=== PATIENT | male | born 1945 | race Caucasian/White ===

== ENCOUNTER → 2017-05-18 | Outpatient (CLI) | payer MEDICARE | LOC: GMAB 14:54 | PROVIDERS: ATTEND Family Medicine | DX: R56.9 Unspecified convulsions (principal); Z12.5 Encounter for screening for malignant neoplasm of prostate; Z79.899 Other long term (current) drug therapy | CPT/HCPCS: 80185; 84443; G0103 ==

== ENCOUNTER → 2017-05-20 | Outpatient (CLI) | payer MEDICARE ==
--- NOTE | 2017-05-22 06:10 | CT ---
Procedure: CT CHEST WITH IV CONTRAST Exam date: 05/20/2017 12:00 AM CDT Ordering Provider: SUE CASTELLANO Clinical Indication: CHRONIC COUGH Comparison: None Technique: Using a multislice scanner, sequential axial imaging was obtained in the thorax from the level of the thoracic inlet through the lung bases. The exam was obtained with the administration of IV contrast. 2D sagittal and coronal reconstructed images were obtained. This exam was performed according to our departmental dose optimization program which includes use of automated exposure control, adjustment of the mA and/or kV according to patient size and/or use of iterative reconstruction technique. FINDINGS: 9 mm well-circumscribed nodule within the left upper lobe. Internal Hounsfield units measure a negative value of -77. This is favored to represent a small hamartoma. Otherwise, there are no concerning pulmonary masses or nodules. There is no alveolar or interstitial infiltrate. There are no pleural effusions. Cardiac size is normal. There is no pericardial effusion. Aorta and pulmonary arteries are grossly unremarkable. Bullous timing was not sent for pulmonary angiography and segmental or subsegmental pulmonary emboli cannot be excluded. No dissection or aneurysm seen. There is no supraclavicular or axillary lymphadenopathy. There is no mediastinal, hilar, or subcarinal lymphadenopathy. There are no skeletal abnormalities. Heterogeneous right thyroid nodule measuring 1.8 x 1.4 cm. Follow-up ultrasound of the thyroid is recommended. IMPRESSION 1. Nonacute contrast enhanced CT scan of the chest. 2. Subcentimeter left upper lobe pulmonary hamartoma. 3. Right thyroid lobe nodule. Recommend dedicated ultrasound of the thyroid gland.. Electronically signed by: Umberto Sotelo MD 05/22/2017 6:09 AM CDT
== END | disposition home or self-care (01) ==
LOC: CT 09:28
PROVIDERS: ATTEND Family Medicine
DX: R05 Cough (principal)

== ENCOUNTER → 2018-10-04 | Outpatient (CLI) | payer MEDICARE | LOC: GMAE 14:20 | PROVIDERS: ATTEND Family Medicine | DX: R56.9 Unspecified convulsions (principal); E83.51 Hypocalcemia; R53.83 Other fatigue ==

== ENCOUNTER → 2019-11-26 | Outpatient (CLI) | payer MEDICARE | CPT/HCPCS: 84443; G0103 ==

== ENCOUNTER → 2020-04-03 | Outpatient (CLI) | payer MEDICARE ==
--- NOTE | 2020-04-03 21:08 | US ---
EXAM DESCRIPTION: Extremity,Lower Jose Daniel Arteries: Ultrasound. CLINICAL HISTORY: PAIN IN RIGHT LEG COMPARISON: None. TECHNIQUE: Doppler evaluation of the bilateral lower extremity arterial flow waveforms and velocities. FINDINGS: Arterial waveforms in the right lower extremity are all multiphasic.. Arterial waveforms in the left lower extremity are all multiphasic.. Comments: Negative findings. IMPRESSION: Doppler ultrasound of the bilateral lower extremity arterial system shows no evidence of significant atherosclerotic occlusive disease.. Electronically signed by: Norm Iniguez MD 04/03/2020 9:07 PM CDT
== END ==
LOC: US 09:42
PROVIDERS: ATTEND Family Medicine
DX: M79.605 Pain in left leg (principal); M79.604 Pain in right leg

== ENCOUNTER → 2020-04-09 | Outpatient (CLI) | payer MEDICARE | LOC: ECHO 09:16 | PROVIDERS: ATTEND Family Medicine | DX: R06.00 Dyspnea, unspecified (principal) ==

== ENCOUNTER 2020-06-17 09:18 | Inpatient (IN) | payer MEDICARE ==
--- NOTE | 2020-06-17 10:07 | ED.PDOC ---
History of Present Illness - General Chief Complaint: Respiratory Problem Stated Complaint: trouble breathing Time Seen by Provider: 06/17/20 09:47 Source: patient Exam Limitations: no limitations - History of Present Illness Initial Comments: INTERMITTENT DYSPNEA X 1 MONTH[address] [facility] [address] FOR COVID TEST, THEY NOTICED HIS SATS IN 80'S ON RA, THUS SENT TO ER FOR EVALUATION. PT STATES FOR PAST MONTH, HE "CAN'T BREATHE." COMES AND GOES. NO COUGH. NO CP. DENIES ANY KNOWN COVID CONTACTS. 02 SATS 86% ON RA, 93% ON 3L NC. NO LABORED BREATHING BUT POS BL EXPIRATORY WHEEZE ON P.E. DENIES ANY H/O COPD OR ASTHMA BUT SMOKES. Timing/Duration: intermittent Severity: moderate Activities at Onset: none Possible Cause: other - POSSIBLY COVID VS TOBACCO USE (COPD EXACERBATION). Worsening Factors: nothing Associated Symptoms: denies symptoms Respiratory Risk Factors: no cause identified Allergies/Adverse Reactions: Allergies NO KNOWN ALLERGY Allergy (Verified 07/03/15 11:24) Home Medications: Ambulatory Orders Acetaminophen [Gnp Arthritis Pain Relief] 2 each PO DAILY 06/17/20 Calcium Carbonate-Vitamin D W/ [Caltrate 600+D Plus [employer]] 1 tab PO DAILY 06/17/20 Esomeprazole Magnesium [Nexium 24Hr] 20 mg PO DAILY 06/17/20 Furosemide [Lasix] 40 mg PO DAILY 06/17/20 Meloxicam [Mobic] 15 mg PO DAILY 06/17/20 Phenytoin Sodium Cap Extended [Dilantin Cap] 300 mg PO BEDTIME 06/17/20 Potassium Chloride [K-Tab] 10 meq PO DAILY 06/17/20 Probiotic Product [Probiotic] 1 tab PO DAILY 06/17/20 Review of Systems - Review of Systems Constitutional: Denies: chills, fever, malaise EENTM: Denies: ear pain, nose congestion, throat pain Respiratory: States: short of breath. Denies: cough, wheezing Cardiology: Denies: chest pain, palpitations Gastrointestinal/Abdominal: Denies: abdominal pain, nausea Genitourinary: Denies: dysuria, frequency Musculoskeletal: Denies: back pain, joint pain, muscle pain, neck pain Skin: Denies: lesions, rash Neurological: Denies: headache, paresthesia, weakness Endocrine: Denies: intolerance to cold, intolerance to heat Hematologic/Lymphatic: Denies: easy bleeding, easy bruising All other Systems: Reviewed and Negative Past Medical History (General) - Patient Medical History Hx Seizures: Yes Hx Stroke: No Hx Congestive Heart Failure: No Hx Diabetes: No Hx Gastroesophageal Reflux: Yes Surgical History: no surgical history - Vaccination History Hx Tetanus, Diphtheria Vaccination: No Hx Influenza Vaccination: No Hx Pneumococcal Vaccination: Yes - Social History Hx Tobacco Use: Yes Family Medical History - Family History Father Family History: Unknown Physical Exam - Physical Exam General Appearance: Alert, No apparent distress Eyes, Ears, Nose, Throat Exam: normal ENT inspection, TMs normal, pharynx normal Neck: non-tender, supple Respiratory: no respiratory distress, no accessory muscle use, wheezing - BL EXPIRATORY MUSICAL WHEEZE. Cardiovascular/Chest: regular rate, rhythm, no murmur Peripheral Pulses: radial,right: 2+, radial,left: 2+ Gastrointestinal/Abdominal: normal bowel sounds, non tender, soft Rectal Exam: deferred Extremity: no pedal edema, no calf tenderness Neurologic: alert, normal mood/affect, oriented x 3 Skin Exam: normal color, warm/dry Lymphatic: no adenopathy Progress - Progress Progress: 06/17/20 10:[address] [facility] OFFICE CALLED AND INFORMED US HIS COVID SWAB WAS POSITIVE. 06/17/20 11:38 COVID POS. CRP ELEVATED. AST/ALT MIDLY ELEVATED. EKG LEFT AXIS DEVIATION AND INVERTED T-WAVES, BUT NO ST ELEVATION/DEPRESSION. D-DIMER MILDLY ELEVATED AT 529, NOT TO THE POINT OF P.E. CONCERNS THUS CT IS NOT INDICATED AT THIS TIME. HIS RESPIRATORY STATUS IS STABLE. NEG OR UNREMARKABLE DIAGNOSTICS: CREATINE KINASE, LACTATE DEHYDROGENASE, LACTIC ACID, UA, CARDIAC ENZ, CBC, COAGS, CXR NEG ACUTELY, BCX PENDING. PER UP-TO-DATE, HE IS REQUIRING 02 SUPPLEMENTATION, I GAVE DOSE OF DEXAMETHASONE, DUONEBS [place]. PT IS HIGH RISK WITH: AGE IN 70'S, OBESE, SMOES, SATS BELOW 90, THUS ADMITTING. THANK YOU, [facility], FOR ACCEPTING ADMISSION CARE OF OUR PATIENT. - EKG/XRAY/CT EKG: no ST T wave changes Departure - Departure Clinical Impression: Lab test positive for detection of COVID-19 virus, Hypoxia, Wheeze, Tobacco use, Requires supplemental oxygen, CRP elevated, LFT elevation, D-dimer, elevated Dyspnea Qualifiers: Dyspnea type: shortness of breath Qualified Code(s): R06.02 - Shortness of breath; R06.00 - Dyspnea, unspecified; R06.01 - Orthopnea Disposition: Admit Patient Condition: Fair Departure Forms: ED Discharge - Pt. Copy, Patient Portal Self Enrollment Referrals: MONSERRAT ALVARADO MD [Primary Care Provider] - 1-2 Weeks Home Medications: Ambulatory Orders Acetaminophen [Gnp Arthritis Pain Relief] 2 each PO DAILY 06/17/20 Calcium Carbonate-Vitamin D W/ [Caltrate 600+D Plus [place]] 1 tab PO DAILY 06/17/20 Esomeprazole Magnesium [Nexium 24Hr] 20 mg PO DAILY 06/17/20 Furosemide [Lasix] 40 mg PO DAILY 06/17/20 Meloxicam [Mobic] 15 mg PO DAILY 06/17/20 Phenytoin Sodium Cap Extended [Dilantin Cap] 300 mg PO BEDTIME 06/17/20 Potassium Chloride [K-Tab] 10 meq PO DAILY 06/17/20 Probiotic Product [Probiotic] 1 tab PO DAILY 06/17/20 Decision To Admit - Decistion To Admit Decision to Admit Reason: Admit from ER Decision to Admit Date: 06/17/20 Decision to Admit Time: 11:47
[2020-06-17] MEDS ORDERED: IPRATROPIUM/ALBUTEROL 3 ML VIAL NEB ONE (10:08)
[2020-06-17] MEDS ORDERED: DEXAMETHASONE INJ 4 MG/ML VIAL IV ONE (10:25)
--- NOTE | 2020-06-17 11:05 | RAD ---
Study: Single Frontal Radiograph of the Chest. Indication:hypoxia Comparison: CT May 20, 2017. Findings: Mild cardiomegaly. Mild prominence of the right paratracheal stripe, likely reflecting underlying vascularity but nonspecific. Short-term follow-up versus CT recommended. Previously noted left upper lobe 10 mm hamartoma redemonstrated. Mild basilar atelectasis. No pleural effusion or pneumothorax. Electronically signed by: Juan Pablo Elizabeth MD 06/17/2020 11:02 AM CDT
--- NOTE | 2020-06-17 12:03 | HP ---
SUPERVISING PHYSICIAN: Tre Terrazas MD CHIEF COMPLAINT: Difficulty breathing. HISTORY OF PRESENT ILLNESS: This is a 89-year-old male patient who came to the Emergency Room with a one-month history of intermittent dyspnea. Apparently he tested positive about a month ago with COVID-19. He was seen at the clinic and noted to have O2 saturations in the low 80s. Therefore, he was sent to the ER. He was seen in the ER and was about 86% on room air. He was placed on nasal cannula and his oxygen saturation improved to 93% on 3 liters. Chest x-ray was consistent with COVID pneumonitis. Other labs done show white count 3.7, hemoglobin 14.7, platelet count 132. Elevated D-dimer at 529. Chemistry shows mildly elevated liver function tests with AST 49, ALT 86. BUN slightly elevated at 20. Cardiac enzymes negative. CRP 3.7, lactic acid 1.6. Due to the hypoxemia, he was referred for admission. At time of examination, the patient is alert. No significant complaints of shortness of breath. No complaints of pain at this time, only being hungry. PAST MEDICAL HISTORY: 1. Gastroesophageal reflux disease. 2. Seizure disorder. 3. Nicotine dependency. PAST SURGICAL HISTORY: None. MEDICATIONS: Please see Qwilr list once verified in the computer. ALLERGIES: NO KNOWN DRUG ALLERGIES. FAMILY HISTORY: Both parents from unknown causes of . SOCIAL HISTORY: The patient smokes. No alcohol, no illicit drugs. REVIEW OF SYSTEMS: CONSTITUTIONAL: No fever or chills. No recent weight loss or weight gain. HEENT: No headaches, vision changes, ear pain, nasal congestion or throat pain. RESPIRATORY: Positive for shortness of breath and cough. No hemoptysis or pleuritic chest pain. CARDIOVASCULAR: No chest pain, palpitations or peripheral edema. GASTROINTESTINAL: No nausea, vomiting, diarrhea, constipation or abdominal pain. GENITOURINARY: No dysuria, frequency or flank pain. ENDOCRINE: No polydipsia, polyuria or polyphagia. No heat or cold intolerance. MUSCULOSKELETAL: No joint pain, joint swelling or muscle cramps. NEUROLOGIC: He has seizure disorder, but no syncope, paresthesias. HEMATOLOGIC: No easy bruising and no transfusion reaction. PHYSICAL EXAMINATION: VITAL SIGNS: Blood pressure 120/85, heart rate 70, respiratory rate 20, temperature 96.7, oxygen saturation 96% on 3 liters via nasal cannula. GENERAL: Mr. Meza is a 75-year-old male patient in no active distress. NEUROLOGIC: The patient is alert. LUNGS: Clear to auscultation bilaterally currently, a little bit diminished in the bases otherwise. CARDIOVASCULAR: Regular rate and rhythm. Normal S1, S2. ABDOMEN: Soft. Positive bowel sounds. GENITOURINARY: Deferred. EXTREMITIES: Lower extremities with no edema. Pulses 2+. Capillary refill is less than 2 seconds. LABORATORY: Labs and films are as discussed in history of present illness. IMPRESSION: 1. Acute hypoxemic respiratory failure. 2. COVID pneumonitis. 3. Gastroesophageal reflux disease. 4. History of seizure disorder. 5. Mild transaminitis. PLAN: The patient will be admitted to the Medical/Surgical Unit on supplemental oxygen. He is empirically placed on azithromycin, Rocephin and dexamethasone. I am placing him on 1 mg per kg of Lovenox as well. We will monitor the patient's respiratory status. I have discussed with him that if it starts to worsen, he will need to be transferred. For now, we will monitor and ensure that he maintains adequate oxygenation. I will resume home medications once they are verified in the computer as well. #[id number] [facility]
[2020-06-17 12:06] VITALS: BP 120/85
[2020-06-17 12:34] VITALS: TEMP 96.7; O2SAT 96
[2020-06-17] MEDS ORDERED: SODIUM CHLORIDE 0.9% (FLUSH) 10 ML SYG IV PRN (12:35)
[2020-06-17] MEDS ORDERED: IPRATROPIUM/ALBUTEROL 3 ML VIAL INH PRN (12:35)
[2020-06-17] MEDS ORDERED: IV SET AND CAP CHANGE INJ INJ SCH (13:00)
[2020-06-17] MEDS ORDERED: ENOXAPARIN SODIUM 100 MG/ML SYG SUBCU SCH (13:00)
[2020-06-17] MEDS ORDERED: cefTRIAXone SODIUM 1 GM in SODIUM CHL 0.9% 50ML MIN-BAG+ 50 ML IVPB SCH (13:00)
[2020-06-17] MEDS ORDERED: AZITHROMYCIN IV 500 MG in SODIUM CHLORIDE 0.9% 250ML 250 ML IVPB SCH (14:00)
[2020-06-17] MEDS ORDERED: IPRATROPIUM/ALBUTEROL 3 ML VIAL INH SCH (16:00)
[2020-06-17] MEDS ORDERED: ALBUTEROL INHALER 64 PUFF/8GM INH SCH (16:00)
[2020-06-17] MEDS ORDERED: PHENYTOIN SODIUM CAP EXTENDED 100 MG CAP PO SCH (21:00)
[2020-06-18] MEDS ORDERED: PANTOPRAZOLE SODIUM TAB 40 MG PO SCH (06:30)
[2020-06-18] MEDS ORDERED: FUROSEMIDE 40 MG TAB PO SCH (09:00)
[2020-06-18] MEDS ORDERED: DEXAMETHASONE INJ 10 MG/ML VIAL IV SCH (09:00)
[2020-06-18] MEDS ORDERED: CALCIUM CARBONATE-VITAMIN D 500 MG TAB PO SCH (09:00)
[2020-06-18] MEDS ORDERED: POTASSIUM CHLORIDE 10 MEQ TAB PO SCH (09:00)
[2020-06-18] MEDS ORDERED: MELOXICAM 7.5 MG TAB PO SCH (09:00)
[2020-06-18] MEDS ORDERED: ACETAMINOPHEN PO SCH (09:00)
== END 2020-06-17 13:30 | disposition left against medical advice (07) | DRG 177 ==
LOC: ER 09:18 → OBSVTOIN 12:00 → MS 12:00
PROVIDERS: ADMIT Nurse Practitioner; ATTEND Nurse Practitioner
DX: U07.1 COVID-19 (principal); J12.89 Other viral pneumonia; J96.01 Acute respiratory failure with hypoxia; R79.89 Other specified abnormal findings of blood chemistry; K21.9 Gastro-esophageal reflux disease without esophagitis; G40.909 Epilepsy, unspecified, not intractable, without status epilepticus; F17.210 Nicotine dependence, cigarettes, uncomplicated; R74.01 Elevation of levels of liver transaminase levels; Z79.1 Long term (current) use of non-steroidal anti-inflammatories (NSAID); Z79.899 Other long term (current) drug therapy

== ENCOUNTER 2020-07-02 11:58 | Emergency (ER) | payer MEDICARE ==
[2020-07-02 12:13] VITALS: TEMP 97.7
--- NOTE | 2020-07-02 12:18 | ED.PDOC ---
History of Present Illness - General Time Seen by Provider: 07/02/20 11:59 Source: patient, RN notes reviewed, Vital Signs reviewed, old records Additional Information: Hx of brain injury, seizures, memory impairment. daughter POA. - History of Present Illness Initial Comments: 75 yo M comes in with the c/c of something feels stuck in his lower esophagus. States he ate about 1 inch bite of hot dog around 8 PM yesterday, and has since not been able to keep any food or drink down. Can swallow secretions, no coughing or aspiration. no shortness of breath. Has not happened before. Of note patient was recently admitted to the hospital with covid, but left AMA. currently not having any COVID symptoms. Allergies/Adverse Reactions: Allergies NO KNOWN ALLERGY Allergy (Verified 07/03/15 11:24) Home Medications: Ambulatory Orders Acetaminophen [Gnp Arthritis Pain Relief] 2 each PO DAILY 06/17/20 Calcium Carbonate-Vitamin D W/ [Caltrate 600+D Plus [place]] 1 tab PO DAILY 06/17/20 Esomeprazole Magnesium [Nexium 24Hr] 20 mg PO DAILY 06/17/20 Furosemide [Lasix] 40 mg PO DAILY 06/17/20 Meloxicam [Mobic] 15 mg PO DAILY 06/17/20 Phenytoin Sodium Cap Extended [Dilantin Cap] 300 mg PO BEDTIME 06/17/20 Potassium Chloride [K-Tab] 10 meq PO DAILY 06/17/20 Probiotic Product [Probiotic] 1 tab PO DAILY 06/17/20 Review of Systems - Review of Systems Constitutional: Denies: chills, fever EENTM: Denies: blurred vision Respiratory: Denies: cough, short of breath Cardiology: Denies: chest pain, palpitations Gastrointestinal/Abdominal: States: abdominal pain, nausea, vomiting. Denies: diarrhea Genitourinary: Denies: frequency Musculoskeletal: Denies: back pain, muscle pain Skin: Denies: rash Neurological: Denies: headache, numbness Endocrine: Denies: unexplained weight gain, unexplained weight loss Hematologic/Lymphatic: Denies: easy bleeding, easy bruising Past Medical History (General) - Patient Medical History Hx Seizures: Yes Hx Stroke: No Hx Congestive Heart Failure: No Hx Diabetes: No Hx Gastroesophageal Reflux: Yes - Vaccination History Hx Tetanus, Diphtheria Vaccination: No Hx Influenza Vaccination: No Hx Pneumococcal Vaccination: Yes - Social History Hx Tobacco Use: Yes Family Medical History - Family History Father Family History: Unknown Physical Exam - Physical Exam General Appearance: Alert, Comfortable, No apparent distress, Well Developed, Well Groomed, Well Hydrated, Well Nourished Ears, Nose, Throat: hearing grossly normal, normal ENT inspection Neck: non-tender, full range of motion, supple, normal inspection Respiratory: chest non-tender, lungs clear, normal breath sounds, no respiratory distress, no accessory muscle use Cardiovascular/Chest: normal peripheral pulses, regular rate, rhythm, no edema, no gallop, no JVD, no murmur Peripheral Pulses: radial,right: 2+, radial,left: 2+ Gastrointestinal/Abdominal: normal bowel sounds, non tender, soft, no organomegaly, no pulsatile mass Rectal Exam: deferred Back Exam: normal inspection, no CVA tenderness Extremity: normal range of motion, non-tender, no calf tenderness Neurologic: no motor/sensory deficits, alert, normal mood/affect Skin Exam: normal color, warm/dry Progress - Progress Progress: 07/02/20 12:33 attempted to give patient some coke, after a few sips, it came right back up. Will give a small dose of glucagon. Will get CT scan. Due to being present over 12 hours, will likely need transfer for EGD. After glucagon, now tolerating small sips of cola. 07/02/20 12:59 - Results/Orders Results/Orders: The data reviewed when caring for this patient included: nurse notes, prior records, etc. The history and assessments from nurses notes were reviewed and considered, and the patient's home medication list was also reviewed and considered. My assessment and the results of testing completed here in the ED were discussed with the patient/family. All questions were answered, and they express understanding of my assessment and the plan. patient was transferred to [facility] in stable condition. Page Beltrán DO #[id number] - EKG/XRAY/CT CT: Food bolus/debri noted in distal esophagus. Right pulmonary nodule 1.2 cm. - Consult/PCP Time Called: 13:10 Consult/PCP: Dr. Mahan [phone] GI, request repeat covid swab. Departure - Departure Clinical Impression: Esophageal obstruction due to food impaction, Pulmonary nodule 1 cm or greater in diameter Time of Disposition: 14:17 Disposition: Transfer to Hospital Referrals: MONSERRAT ALVARADO MD [Primary Care Provider] - 1-2 Days Home Medications: Ambulatory Orders Acetaminophen [Gnp Arthritis Pain Relief] 2 each PO DAILY 06/17/20 Calcium Carbonate-Vitamin D W/ [Caltrate 600+D Plus [place]] 1 tab PO DAILY 06/17/20 Esomeprazole Magnesium [Nexium 24Hr] 20 mg PO DAILY 06/17/20 Furosemide [Lasix] 40 mg PO DAILY 06/17/20 Meloxicam [Mobic] 15 mg PO DAILY 06/17/20 Phenytoin Sodium Cap Extended [Dilantin Cap] 300 mg PO BEDTIME 06/17/20 Potassium Chloride [K-Tab] 10 meq PO DAILY 06/17/20 Probiotic Product [Probiotic] 1 tab PO DAILY 06/17/20 Transfer to Outside Facility - Transfer Information Decision to Transfer Date: 07/02/20 Decision to Transfer Time: 12:40 Reason for Transfer: required specialist not available Accepting Facility: [facility] - needs endocsopy
[2020-07-02] MEDS ORDERED: GLUCAGON INJ 1 MG VIAL IV ONE (12:25)
--- NOTE | 2020-07-02 13:49 | CT ---
EXAM DESCRIPTION: Abdomen w/Contrast (accession [id number]), Chest w/Contrast (accession [id number]) CLINICAL HISTORY: 75 years Male, Food bolus , dysphagia TECHNIQUE: This exam was performed according to our departmental dose-optimization program, which includes automated exposure control, adjustment of the mA and/or kV according to patient size and/or use of iterative reconstruction technique. COMPARISON: May 20, 2017 FINDINGS: No axillary adenopathy. Atherosclerotic plaque in the thoracic aorta. Coronary artery calcifications. No pericardial effusion. Layering fluid and debris in the esophagus. No mediastinal adenopathy. No pneumothorax. No pleural effusion. Stable benign left upper lobe pulmonary nodule. Groundglass right upper lobe pulmonary nodule measuring 1.2 cm series 8 image 44. No focal consolidation. No focal hepatic lesion. No biliary dilatation. The portal vein is patent. The gallbladder is unremarkable. Thickening of the left adrenal gland. The spleen, pancreas and right adrenal gland are unremarkable. Symmetric renal parenchymal enhancement. No hydronephrosis. No urolithiasis. The visualized bowel is normal in caliber without evidence of obstruction or focal inflammatory change. Normal appendix. No adenopathy. No focal fluid collection. No free air. Mild atherosclerotic disease. No acute or suspicious osseous abnormality. Scattered degenerative changes present. IMPRESSION: Layering fluid and debris in the esophagus no obstructive mass identified. Recommend correlation for GERD. Endoscopy may be helpful for further evaluation. Groundglass right upper lobe pulmonary nodule measuring 1.2 cm. According to the most recent Fleischner Society Pulmonary Nodule Guidelines ( DOI: http://dx.doi.org/10.1148/radiol.1765338813 ), for a single ground-glass nodule measuring 6 mm or greater, recommend initial follow-up by CT at 6-12 months to confirm persistence; then CT every 2 years until 5 years is recommended. Electronically signed by: Aaron Wall MD 07/02/2020 1:48 PM CDT
--- NOTE | 2020-07-02 13:49 | CT ---
EXAM DESCRIPTION: Abdomen w/Contrast (accession [id number]), Chest w/Contrast (accession [id number]) CLINICAL HISTORY: 75 years Male, Food bolus , dysphagia TECHNIQUE: This exam was performed according to our departmental dose-optimization program, which includes automated exposure control, adjustment of the mA and/or kV according to patient size and/or use of iterative reconstruction technique. COMPARISON: May 20, 2017 FINDINGS: No axillary adenopathy. Atherosclerotic plaque in the thoracic aorta. Coronary artery calcifications. No pericardial effusion. Layering fluid and debris in the esophagus. No mediastinal adenopathy. No pneumothorax. No pleural effusion. Stable benign left upper lobe pulmonary nodule. Groundglass right upper lobe pulmonary nodule measuring 1.2 cm series 8 image 44. No focal consolidation. No focal hepatic lesion. No biliary dilatation. The portal vein is patent. The gallbladder is unremarkable. Thickening of the left adrenal gland. The spleen, pancreas and right adrenal gland are unremarkable. Symmetric renal parenchymal enhancement. No hydronephrosis. No urolithiasis. The visualized bowel is normal in caliber without evidence of obstruction or focal inflammatory change. Normal appendix. No adenopathy. No focal fluid collection. No free air. Mild atherosclerotic disease. No acute or suspicious osseous abnormality. Scattered degenerative changes present. IMPRESSION: Layering fluid and debris in the esophagus no obstructive mass identified. Recommend correlation for GERD. Endoscopy may be helpful for further evaluation. Groundglass right upper lobe pulmonary nodule measuring 1.2 cm. According to the most recent Fleischner Society Pulmonary Nodule Guidelines ( DOI: http://dx.doi.org/10.1148/radiol.3984134653 ), for a single ground-glass nodule measuring 6 mm or greater, recommend initial follow-up by CT at 6-12 months to confirm persistence; then CT every 2 years until 5 years is recommended. Electronically signed by: Aaron Wall MD 07/02/2020 1:48 PM CDT
[2020-07-02 14:35] VITALS: BP 139/83; O2SAT 94
== END 2020-07-02 14:35 | disposition short-term general hospital (02) ==
LOC: ER 11:58
DX: K22.2 Esophageal obstruction (principal); R91.1 Solitary pulmonary nodule; K21.9 Gastro-esophageal reflux disease without esophagitis; F17.200 Nicotine dependence, unspecified, uncomplicated; Z86.19 Personal history of other infectious and parasitic diseases; Z79.899 Other long term (current) drug therapy; Z20.828 Contact with and (suspected) exposure to other viral communicable diseases
CPT/HCPCS: 71260; 74160; 82565; 84520; 87635; J1610